=== PATIENT | male | born 2000 | race Hispanic/Latino ===

== ENCOUNTER 2018-08-17 19:02 | Emergency (ER) | payer OTHER, SELFPAY ==
[2018-08-17] MEDS ORDERED: KETOROLAC 30 MG/ML INJ ONE (20:13)
--- NOTE | 2018-08-17 20:50 | RAD REPORT ---
EXAM DESCRIPTION: US - Scrotum Testicles - 08/17/2018 8:28 pm CLINICAL HISTORY: Scrotal pain COMPARISON: None FINDINGS: Right testicle measures 3.5 x 1.6 x 2.2 centimeters. Echotexture is homogeneous. Normal bl ood flow. Microlithiasis Left testicle measures 3.5 x 1.7 x 2.6 centimeters. Echotexture is homogeneous. Normal blood flow. Mi crolithiasis The epididymides are normal in size and echotexture. IMPRESSION: No evidence of an acute testicular injury Testicular microlithiasis. Yearly ultrasound recommended as this is associated with increased risk of developing neoplasm
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
[2018-08-17 22:53] LABS: Urine Blood NEGATIVE (NEG); Urine Glucose NEGATIVE (NEG); Urine Protein 2+ (NEG); Urine Specific Gravity 1.015 (1.005-1.030)
== END 2018-08-17 21:28 | disposition home or self-care (01) ==
LOC: ER 19:02
DX: N50.811 Right testicular pain (principal)
CPT/HCPCS: 76870; 81003; 96372; 99284

== ENCOUNTER 2018-12-24 14:01 | Emergency (ER) | payer SELFPAY ==
[2018-12-24] MEDS ORDERED: HYDROCODONE/APAP 5/325 MG TAB ONE (14:44)
--- NOTE | 2018-12-24 16:38 | RAD REPORT ---
EXAM DESCRIPTION: US - Scrotum Testicles - 12/24/2018 3:46 pm CLINICAL HISTORY: scrotal pain and swelling COMPARISON: Scrotum Testicles dated 08/17/2018 FINDINGS: The right testicle 3.8 x 2.7 x 1.6 cm.. Testicular microlithiasis. No intratesticular mass es or evidence of testicular torsion. The left testicle 3.7 x 2.5 x 1.5 cm. Testicular microlithiasis. No intratesticular masses or evidenc e of testicular torsion. Right epididymis appears mildly hypervascular. Left epididymis appears normal. Small right hydrocele. IMPRESSION: Right epididymitis suspected. Testicular microlithiasis.
[2018-12-24] MEDS ORDERED: CEFTRIAXONE 1000 MG/VIAL ONE (17:05)
[2018-12-24] MEDS ORDERED: AZITHROMYCIN 250 MG TAB ONE (17:05)
[2018-12-24] MEDS ORDERED: WATER FOR INJ,STERILE 10 ML ONE (17:05)
--- NOTE | 2018-12-24 17:21 | ER ---
Nurse's Notes [facility] Name: Thiago Rothman Age: 18 yrs Sex: Male : 2000 Arrival Date: 12/24/2018 Time: 14:02 Bed 7 Private MD: Diagnosis: Epididymitis Presentation: 12/24 14:14 Presenting complaint: Patient states: noticed some pain to right testicle when he woke iw up, noticed swelling to testicle at 10 am, pain increased 30 minutes ago. Transition of care: patient was not received from another setting of care. Onset of symptoms was December 24, 2018. Risk Assessment: Do you want to hurt yourself or someone else? Patient reports no desire to harm self or others. Initial Sepsis Screen: Does the patient meet any 2 criteria? No. Patient's initial sepsis screen is negative. Does the patient have a suspected source of infection? No. Patient's initial sepsis screen is negative. Care prior to arrival: None. 14:14 Method Of Arrival: Ambulatory iw 14:14 Acuity: SABINO 3 iw Triage Assessment: 14:36 General: Appears in no apparent distress. uncomfortable, Behavior is calm, cooperative. ae4 Pain: Complains of pain in left testicle and right testicle Pain currently is 8 out of 10 on a pain scale. Historical: - Allergies: 14:16 No Known Allergies; iw - Home Meds: 14:16 None [Active]; iw - PMHx: 14:16 None; iw - PSHx: 14:16 None; iw - Immunization history:: Adult Immunizations not up to date. - Social history:: Smoking status: . - Ebola Screening: : Patient negative for fever greater than or equal to 101.5 degrees Fahrenheit, and additional compatible Ebola Virus Disease symptoms Patient denies exposure to infectious person Patient denies travel to an Ebola-affected area in the 21 days before illness onset No symptoms or risks identified at this time. Screenin:36 Abuse screen: Denies threats or abuse. Nutritional screening: No deficits noted. ae4 Tuberculosis screening: No symptoms or risk factors identified. Fall Risk None identified. Assessment: 14:00 General: Appears in no apparent distress. uncomfortable, slender, Behavior is calm, ae4 cooperative. Pain: Complains of pain in right testicle Pain currently is 8 out of 10 on a pain scale. Pain: Noted to be grimacing. Neuro: Level of Consciousness is awake, alert, obeys commands, Oriented to person, place, time, situation, Appropriate for age. Cardiovascular: Patient's skin is warm and dry. Respiratory: Airway is patent Respiratory effort is even, unlabored, Respiratory pattern is regular, symmetrical. GI: No signs and/or symptoms were reported involving the gastrointestinal system. : Reports Scrotal pain: sudden onset. EENT: No signs and/or symptoms were reported regarding the EENT system. Musculoskeletal: Swelling present in right testicle. 14:57 Reassessment: Solar Energy Systems Engineer at bedside. ae4 15:34 Reassessment: Patient and/or family updated on plan of care and expected duration. Pain ae4 level reassessed. Patient states feeling better. Patient states symptoms have improved. 16:28 Reassessment: Patient appears in no apparent distress at this time. Patient and/or ae4 family updated on plan of care and expected duration. Pain level reassessed. Vital Signs: 14:16 BP 140 / 95; Pulse 84; Resp 16; Pulse Ox 100% on R/A; Weight 63.5 kg; Height 5 ft. 11 iw in. (180.34 cm); Pain 8/10; 14:33 BP 125 / 80; Pulse 74; Resp 19; Pulse Ox 100% on R/A; ae4 15:30 Temp 98.1(O); ae4 16:28 BP 133 / 96; Pulse 93; Resp 16; Pulse Ox 100% on R/A; ae4 14:16 Body Mass Index 19.53 (63.50 kg, 180.34 cm) ED Course: 14:02 Patient arrived in ED. as 14:09 Emily Sterling PA is PHCP. jmm 14:09 Timothy Carrasco MD is Attending Physician. jmm 14:09 Isauro Robert, MATI is Primary Nurse. ae4 14:15 Triage completed. iw 14:16 Arm band placed on. iw 14:34 Bed in low position. Call light in reach. Pulse ox on. NIBP on. Warm blanket given. ae4 14:45 Ultrasound completed. Patient tolerated well. Notified ADULT SECONDARY EDUCATION INSTRUCTOR/PA emily. sg3 15:47 US Scrotum Testicles In Process Unspecified. EDMS 17:18 Renzo Michael MD is Referral Physician. [facility] 17:30 No provider procedures requiring assistance completed. Patient did not have IV access ae4 during this emergency room visit. Administered Medications: 14:33 Drug: [place] 5 mg-325 mg 1 tabs Route: PO; ae4 15:29 Follow up: Response: Pain is decreased ae4 16:55 Drug: AZITHromycin 1 grams Route: PO; ae4 17:31 Follow up: Response: No adverse reaction ae4 17:00 Drug: Rocephin (cefTRIAXone) 1 grams Route: IM; Site: right gluteus; ae4 17:32 Follow up: Response: No adverse reaction ae4 Outcome: 17:20 Discharge ordered by MD. jm 17:30 Discharged to home ambulatory. ae4 17:30 Condition: stable 17:30 Discharge instructions given to patient, Instructed on discharge instructions, follow up and referral plans. medication usage, Demonstrated understanding of instructions, Prescriptions given X 2. 17:32 Patient left the ED. ae4 Signatures: Dispatcher [employer] EDMS Emily Sterling PA PA jmm Martinez, Amelia as Williams, Irene, RN RN Anupama Garcia sg3 Isauro Robert, MATI RN ae4
--- NOTE | 2018-12-24 17:21 | EDPHYS ---
Physician Documentation [facility] Name: Thiago Rothman Age: 18 yrs Sex: Male : 2000 Arrival Date: 12/24/2018 Time: 14:02 Bed 7 Private MD: ED Physician Timothy Carrasco HPI: 12/24 14:42 This 18 yrs old Male presents to ER via Ambulatory with complaints of jmm Testicular Swelling. 14:42 The patient presents with scrotal pain, of the right side. Onset: The symptoms/episode jmm began/occurred today. Associated signs and symptoms: Pertinent negatives: abdominal pain, fever, hematuria, nausea, vomiting. This is a 18 year old male with no chronic medical conditions that presents to the ED with complaints of right sided scrotal pain beginning this morning. Patient denies fever, denies vomiting, denies abdominal pain. . Historical: - Allergies: 14:16 No Known Allergies; iw - Home Meds: 14:16 None [Active]; iw - PMHx: 14:16 None; iw - PSHx: 14:16 None; iw - Immunization history:: Adult Immunizations not up to date. - Social history:: Smoking status: . - Ebola Screening: : Patient negative for fever greater than or equal to 101.5 degrees Fahrenheit, and additional compatible Ebola Virus Disease symptoms Patient denies exposure to infectious person Patient denies travel to an Ebola-affected area in the 21 days before illness onset No symptoms or risks identified at this time. ROS: 14:42 Constitutional: Negative for fever, chills, and weight loss, Cardiovascular: Negative jmm for chest pain, palpitations, and edema, Respiratory: Negative for shortness of breath, cough, wheezing, and pleuritic chest pain. 14:42 : Positive for testicular pain 14:42 All other systems are negative. Exam: 14:42 Constitutional: This is a well developed, well nourished patient who is awake, alert, jmm and in no acute distress. Head/Face: atraumatic. Eyes: EOMI, no conjunctival erythema appreciated ENT: Moist Mucus Membranes Neck: Trachea midline, Supple Chest/axilla: Normal chest wall appearance and motion. Cardiovascular: Regular rate and rhythm. No edema appreciated Respiratory: Normal respirations, no respiratory distress appreciated Abdomen/GI: Non distended, soft Back: Normal ROM Skin: General appearance color normal 14:42 : right sided right epididymal swelling appreciated, (+) cremasteric reflex. 14:42 Musculoskeletal/extremity: ROM: intact in all extremities. 14:42 Skin: Appearance: Color: normal in color. 14:42 Neuro: Orientation: is normal, Mentation: is normal, Memory: is normal. 14:42 Psych: Behavior/mood is pleasant, cooperative. Vital Signs: 14:16 BP 140 / 95; Pulse 84; Resp 16; Pulse Ox 100% on R/A; Weight 63.5 kg; Height 5 ft. 11 iw in. (180.34 cm); Pain 8/10; 14:33 BP 125 / 80; Pulse 74; Resp 19; Pulse Ox 100% on R/A; ae4 15:30 Temp 98.1(O); ae4 16:28 BP 133 / 96; Pulse 93; Resp 16; Pulse Ox 100% on R/A; ae4 14:16 Body Mass Index 19.53 (63.50 kg, 180.34 cm) iw MDM: 14:12 Patient medically screened. [facility] 17:16 Data reviewed: vital signs, nurses notes. Counseling: I had a detailed discussion with jb the patient and/or guardian regarding: the historical points, exam findings, and any diagnostic results supporting the discharge/admit diagnosis, radiology results, the need for outpatient follow up, to return to the emergency department if symptoms worsen or persist or if there are any questions or concerns that arise at home. ED course: Patient is alert and non toxic in appearance. Patient advised to follow up with urology and otherwise given strict return precautions. Patient understood and agrees with the plan of care. . 12/24 14:28 Order name: Urine Dipstick--Ancillary (enter results) eb 12/24 14:14 Order name: US Scrotum Testicles; Complete Time: 16:43 [facility] 12/24 15:13 Order name: GC (Ejffery/Chl) Probe URINE EDMS Administered Medications: 14:33 Drug: [place] 5 mg-325 mg 1 tabs Route: PO; ae4 15:29 Follow up: Response: Pain is decreased ae4 16:55 Drug: AZITHromycin 1 grams Route: PO; ae4 17:31 Follow up: Response: No adverse reaction ae4 17:00 Drug: Rocephin (cefTRIAXone) 1 grams Route: IM; Site: right gluteus; ae4 17:32 Follow up: Response: No adverse reaction ae4 Disposition: 18:19 Co-signature as Attending Physician, Timothy Carrasco MD. rn Disposition: 12/24/18 17:20 Discharged to Home. Impression: Epididymitis. - Condition is Stable. - Discharge Instructions: Epididymitis. - Prescriptions for Tylenol- Codeine #3 300-30 mg Oral Tablet - take 1 tablet by ORAL route every 6 hours As needed; 6 tablet. Doxycycline Hyclate 100 mg Oral Tablet - take 1 tablet by ORAL route every 12 hours; 20 tablet. - Medication Reconciliation Form, Thank You Letter, Antibiotic Education, Prescription Opioid Use form. - Follow up: Renzo Michael MD; When: 2 - 3 days; Reason: Recheck today's complaints, Continuance of care, Re-evaluation by your physician. Signatures: Dispatcher [employer] EDMD Bunny Sterling PA PA jmm Williams, Irene, Timothy Deleon RN, MD MD rn Elliott, Andrea, RN RN ae4 Corrections: (The following items were deleted from the chart) 15:13 14:31 GC Culture+[id number] ordered. [facility] EDMD 17:32 17:20 12/24/2018 17:20 Discharged to Home. Impression: Epididymitis. Condition is ae4 Stable. Forms are Medication Reconciliation Form, Thank You Letter, Antibiotic Education, Prescription Opioid Use. Follow up: Renzo Michael; When: 2 - 3 days; Reason: Recheck today's complaints, Continuance of care, Re-evaluation by your physician. jb
[2018-12-24 22:07] LABS: Urine Blood NEGATIVE (NEG); Urine Glucose NEGATIVE (NEG); Urine Protein NEGATIVE (NEG); Urine pH 7.5 (5.0-7.0)
[2018-12-27 05:28] LABS: C.trachomatis RNA,TMA Not Detected (Not Detected)
== END 2018-12-24 17:32 | disposition home or self-care (01) ==
LOC: ER 14:01
DX: N45.1 Epididymitis (principal)
CPT/HCPCS: 76870; 81003; 87490; 87590; 96372; 99284

== ENCOUNTER 2019-07-10 19:07 | Emergency (ER) | payer SELFPAY ==
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
[2019-07-10] MEDS ORDERED: ACETAMINOPHEN 325 MG TABLET ONE (20:28)
[2019-07-10] MEDS ORDERED: IBUPROFEN 200 MG TAB PO ONE (20:29)
[2019-07-10] MEDS ORDERED: IBUPROFEN 400 MG TAB ONE (20:29)
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
[2019-07-10 20:43] VITALS: TEMP 98.4
[2019-07-10 20:44] VITALS: BP 129/76; O2SAT 100
--- NOTE | 2019-07-11 15:57 | EKG ---
Test Date: 2019-07-10 Test Time: 19:20:08 Lining Maker Hand: RAJESH MEASUREMENT RESULTS: Intervals: Rate: 78 IL: 142 QRSD: 86 QT: 356 QTc: 405 [place]: P: 75 IL: 142 QRS: 96 T: -60 INTERPRETIVE STATEMENTS: Normal sinus rhythm Rightward axis Inferior infarct, age undetermined T wave abnormality, consider lateral ischemia Abnormal ECG Compared to ECG 06/10/2016 19:30:09 Myocardial infarct finding now present T-wave abnormality now present Possible ischemia now present Electronically Signed On 07-11-19 15:52:20 HVAC TECHNICIAN RESIDENTIAL by Neeraj Power
== END 2019-07-10 20:38 | disposition home or self-care (01) ==
LOC: ER 19:07
DX: R07.9 Chest pain, unspecified (principal)
CPT/HCPCS: 71046; 93005; 99284

== ENCOUNTER 2019-12-22 05:56 | Emergency (ER) | payer SELFPAY ==
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
[2019-12-22 07:40] VITALS: BP 151/94; TEMP 98.1; O2SAT 100
== END 2019-12-22 07:34 | disposition home or self-care (01) ==
LOC: ER 05:56
DX: U07.1 COVID-19 (principal); J06.9 Acute upper respiratory infection, unspecified
CPT/HCPCS: 99281; U0001

== ENCOUNTER 2020-11-10 10:36 | Emergency (ER) | payer SELFPAY ==
[2020-11-10 12:43] LABS: Urine Blood Trace-intact (Negative); Urine Glucose Negative (Negative); Urine Protein 1+ (Negative); Urine Specific Gravity >=1.030 (1.005-1.030)
[2020-11-10 13:06] LABS: Urine Bacteria <20 /HPF (NONE SEEN); Urine RBC <5 /HPF (NONE SEEN)
[2020-11-10 13:18] LABS: Absolute Lymphocytes (CBC) 2.2 K/uL (0.7-4.9); Basophils % 0.6 % (0-1.3); Hematocrit 42.4 % (39.6-49.0); MPV 9.1 fL (7.6-11.3); RBC Red Blood Cell Count 4.78 M/uL (4.33-5.43)
[2020-11-10 13:32] LABS: ALT/SGPT 16 U/L (12-78); AST/SGOT 10 U/L (15-37); Albumin 4.2 g/dL (3.4-5.0); Alkaline Phosphatase 97 U/L (45-117); BUN Blood Urea Nitrogen 17 mg/dL (7-18); Bicarbonate 26 mmol/L (21-32); Bilirubin Direct 0.1 mg/dL (0-0.2); Bilirubin Total 0.3 mg/dL (0.2-1.0); Glucose Level 96 mg/dL (74-106); Lipase 66 U/L (73-393); Sodium Level 140 mmol/L (136-145)
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
[2020-11-10] MEDS ORDERED: CEFTRIAXONE/SWI 1gm 1 GM/10 ML SYR ONE (14:38)
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
[2020-11-10] MEDS ORDERED: AZITHROMYCIN 250 MG TAB ONE (15:07)
[2020-11-10 15:16] VITALS: TEMP 98.3
[2020-11-10 15:18] VITALS: O2SAT 99
[2020-11-10 15:19] VITALS: BP 121/74
== END 2020-11-10 15:11 | disposition home or self-care (01) ==
LOC: ER 10:36
DX: N39.0 Urinary tract infection, site not specified (principal)
CPT/HCPCS: 36415; 74177; 80048; 80076; 81003; 81015; 82565; 83690; 85025; 87086; 87088; 96365; 99284; J0696; Q9967

== ENCOUNTER 2021-02-10 01:40 | Emergency (ER) | payer SELFPAY ==
[2021-02-10 03:19] LABS: Absolute Lymphocytes (CBC) 1.8 K/uL (0.7-4.9); Basophils % 0.3 % (0-1.3); Hematocrit 42.7 % (39.6-49.0); Lymphocytes % 14.4 % (15.3-44.8); MPV 8.3 fL (7.6-11.3); RBC Red Blood Cell Count 4.81 M/uL (4.33-5.43)
[2021-02-10 03:20] LABS: Urine Blood 2+ (Negative); Urine Glucose Negative (Negative); Urine Protein Negative (Negative); Urine pH 5.5 (5.0-7.0)
[2021-02-10 03:33] LABS: ALT/SGPT 26 U/L (12-78); AST/SGOT 14 U/L (15-37); Albumin 4.6 g/dL (3.4-5.0); Alkaline Phosphatase 118 U/L (45-117); BUN Blood Urea Nitrogen 8 mg/dL (7-18); Bicarbonate 26 mmol/L (21-32); Bilirubin Direct < 0.1 mg/dL (0-0.2); Bilirubin Total 0.3 mg/dL (0.2-1.0); Glucose Level 110 mg/dL (74-106); Lipase 94 U/L (73-393); Potassium 3.9 mmol/L (3.5-5.1); Protein, Total 8.3 g/dL (6.4-8.2); Sodium Level 138 mmol/L (136-145)
[2021-02-10] MEDS ORDERED: NA CHLORIDE 0.9% 1,000 ML ONE (03:53)
[2021-02-10] MEDS ORDERED: ONDANSETRON 4 MG/2 ML VIAL ONE (03:53)
[2021-02-10] MEDS ORDERED: MORPHINE 4 MG/ML SYR ONE (03:53)
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
[2021-02-10 05:35] VITALS: BP 123/82; TEMP 98.6; O2SAT 100
--- NOTE | 2021-02-10 12:36 | RAD REPORT ---
EXAM DESCRIPTION: CT - Stone Protocol - 02/10/2021 6:54 am CLINICAL HISTORY: The patient is 20 years old and is Male; Abd pain;Flank pain TECHNIQUE: Axial computed tomography images of the abdomen and pelvis without intravenous contrast. Sagittal and coronal reformatted images were created and reviewed. This CT exam was performed usi ng one or more of the following dose reduction techniques: automated exposure control, adjustment o f the mA and/or kV according to patient size, and/or use of iterative reconstruction technique. COMPARISON: CT of the abdomen and pelvis November 10, 2020 FINDINGS: LUNG BASES: Unremarkable. No mass. No consolidation. ABDOMEN: LIVER: Homogeneous without focal mass. GALLBLADDER AND BILE DUCTS: The gallbladder is contracted. PANCREAS: Unremarkable. No ductal dilation. SPLEEN: Unremarkable. ADRENALS: Unremarkable. No mass. KIDNEYS AND URETERS: Mild right hydroureteronephrosis is present secondary to a 3 mm distal righ t ureteral calculus. The left kidney is normal. STOMACH AND BOWEL: The stomach is minimally distended with food contents. The small bowel is rel atively normal in caliber. Stool is present throughout colon. There is no mucosal thickening or evide nce of bowel obstruction. PELVIS: APPENDIX: The appendix is normal in caliber without surrounding inflammation. BLADDER: The bladder is not well distended. REPRODUCTIVE: Unremarkable as visualized. ABDOMEN and PELVIS: INTRAPERITONEAL SPACE: Unremarkable. No free air. No significant fluid collection. BONES/JOINTS: No acute fracture. SOFT TISSUES: The soft tissues are normal. VASCULATURE: A few calcified phleboliths are present within the pelvis. Evidence of an aortic stent is noted. No abdominal aortic aneurysm. LYMPH NODES: Unremarkable. No enlarged lymph nodes. IMPRESSION: Mild right hydroureteronephrosis is present secondary to a 3 mm distal right ureteral ca lculus. Electronically signed by: Adriana Martínez MD 02/10/2021 4:38 AM CDT Due to temporary technical issues with the PACS/Fluency reporting system, reports are being signed by the in house radiologist without review as a courtesy to ensure prompt reporting. The interpreting r adiologist is fully responsible for the content of the report.
== END 2021-02-10 05:25 | disposition home or self-care (01) ==
LOC: ER 01:40
DX: N20.1 Calculus of ureter (principal)
CPT/HCPCS: 36415; 74176; 76377; 80048; 80076; 81003; 83690; 85025; 96361; 96374; 96375; 99284; J2405; J7030

== ENCOUNTER 2022-02-09 23:01 | Emergency (ER) | payer SELFPAY ==
[2022-02-10 00:19] LABS: Absolute Lymphocytes (CBC) 2.8 K/uL (0.7-4.9); Hematocrit 46.6 % (39.6-49.0); Lymphocytes % 21.4 % (15.3-44.8); MCV 88.3 fL (80-100); MPV 8.3 fL (7.6-11.3); RBC Red Blood Cell Count 5.28 M/uL (4.33-5.43)
[2022-02-10 00:32] LABS: Potassium 3.8 mmol/L (3.5-5.1); Troponin High Sensitivity 15.3 pg/mL (<58.9)
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
[2022-02-10 03:33] VITALS: TEMP 98.7
[2022-02-10 03:35] VITALS: BP 118/61; O2SAT 99
--- NOTE | 2022-02-10 08:13 | EKG ---
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
--- NOTE | 2022-02-10 15:43 | RAD REPORT ---
EXAM DESCRIPTION: RAD - Chest Single View - 02/10/2022 12:18 am CLINICAL HISTORY: 21 years Male CHEST PAIN COMPARISON: None FINDINGS: Lung volumes adequate. Cardiac silhouette is normal. No pneumothorax. No large pleural effusion. No focal consolidation. No acute bony finding. IMPRESSION: No acute cardiopulmonary findings. Electronically signed by: Lynn Cee MD 02/10/2022 12:27 AM CDT Due to temporary technical issues with the PACS/Fluency reporting system, reports are being signed by the in house radiologists without review as a courtesy to insure prompt reporting. The interpreting radiologist is fully responsible for the content of the report.
== END 2022-02-10 01:10 | disposition home or self-care (01) ==
LOC: ER 23:01
DX: R07.9 Chest pain, unspecified (principal); R11.10 Vomiting, unspecified
CPT/HCPCS: 36415; 71045; 80048; 84484; 85025; 93005

== ENCOUNTER 2022-07-07 14:45 | Emergency (ER) | payer SELFPAY ==
[2022-07-07] MEDS ORDERED: KETOROLAC 30 MG/ML INJ ONE (16:07)
[2022-07-07] MEDS ORDERED: ONDANSETRON 4 MG/2 ML VIAL ONE (16:07)
[2022-07-07] MEDS ORDERED: NA CHLORIDE 0.9% 1,000 ML ONE (16:08)
[2022-07-07 16:19] LABS: Absolute Lymphocytes (CBC) 1.1 K/uL (0.7-4.9); Hematocrit 48.7 % (39.6-49.0); Lymphocytes % 5.5 % (15.3-44.8); MCV 88.2 fL (80-100); MPV 8.1 fL (7.6-11.3); RBC Red Blood Cell Count 5.51 M/uL (4.33-5.43)
[2022-07-07 16:28] LABS: Urine Blood Negative (Negative); Urine Glucose Negative (Negative); Urine Protein 2+ (Negative); Urine Specific Gravity 1.025 (1.005-1.030)
[2022-07-07 16:34] LABS: Albumin 5.1 g/dL (3.4-5.0); Bilirubin Total 0.8 mg/dL (0.2-1.0); Potassium 3.8 mmol/L (3.5-5.1); Protein, Total 9.4 g/dL (6.4-8.2)
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
[2022-07-07] MEDS ORDERED: DICYCLOMINE HCL 10 MG CAP ONE (17:11)
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
[2022-07-07 18:28] VITALS: BP 134/84; TEMP 98.4; O2SAT 98
== END 2022-07-07 17:47 | disposition home or self-care (01) ==
LOC: ER 14:45
DX: R10.12 Left upper quadrant pain (principal); R11.2 Nausea with vomiting, unspecified
CPT/HCPCS: 36415; 74176; 80053; 81003; 83690; 85025; 96374; 96375; 99284; J2405; J7030

== ENCOUNTER 2024-02-22 19:45 | Emergency (ER) | payer SELFPAY ==
[2024-02-22] MEDS ORDERED: FLUORESCEIN SODIUM 1 MG/WRAP ONE (20:22)
[2024-02-22] MEDS ORDERED: TETRACAINE HCL 0.5% 4ML OPTH ONE (20:23)
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
[2024-02-22] MEDS ORDERED: IBUPROFEN 400 MG TAB ONE (20:49)
[2024-02-22] MEDS ORDERED: ACETAMINOPHEN 500 MG TAB ONE (20:49)
[2024-02-22 21:57] VITALS: BP 120/70; TEMP 98.2; O2SAT 98
== END 2024-02-22 20:59 | disposition home or self-care (01) ==
LOC: ER 19:45
DX: S05.01XA Injury of conjunctiva and corneal abrasion without foreign body, right eye, initial encounter (principal)
CPT/HCPCS: 99283

== ENCOUNTER 2024-08-31 07:50 | Emergency (ER) | payer SELFPAY ==
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
[2024-08-31 09:49] VITALS: TEMP 98
[2024-08-31 09:50] VITALS: BP 118/68; O2SAT 98
== END 2024-08-31 09:44 | disposition home or self-care (01) ==
LOC: ER 07:50
DX: S69.92XA Unspecified injury of left wrist, hand and finger(s), initial encounter (principal)
CPT/HCPCS: 99283